=== PATIENT | male | born 1970 | race Caucasian/White ===

== ENCOUNTER 2020-09-30 15:09 | Emergency (ER) | payer BC, OTHER ==
[~2020-09-30] VITALS: Ht 188 cm; Wt 114.0 kg
[2020-09-30 15:17] VITALS: BP 168/100
--- NOTE | 2020-09-30 15:45 | NUR ---
PT BROUGHT BACK TO ROOM FROM TRIAGE. PT STATED THAT HE WAS SENT FROM URGENT CARE FOR "POSSIBLE ENDOCARDITIS." PT STATED THAT A COUPLE WEEKS AGO, HE HAD DENTAL WORK DONE AND DEVELOPED AN ABSCESS. PT COMPLETED THREE COURSES OF ANTIBIOTICS. STARTING 2 DAYS AGO, PT STARTED TO DEVELOP PAIN/TIGHTNESS UNDER HIS LEFT ARMPIT/RIBCAGE. TODAY, THE PAIN HAS SPREAD ACROSS HIS WHOLE LEFT CHEST. PT STATED THAT PAIN/TIGHTNESS INCREASES WITH ANY MOVEMENT AND HE FEELS LIKE HE IS UNABLE TO TAKE A DEEP BREATH. PT DENIES ANY FEVER, N/V OR RECENT INJURY. PT STATED THAT HE HAS HAD SOME DIARRHEA, BUT THINKS IT IS RELATED TO HIS ABX.
[2020-09-30 16:20] LABS: BASOPHILS % (AUTO) 1 % (0-1); EOSINOPHILS % (AUTO) 2 % (1-7); LYMPHOCYTES % (AUTO) 30 % (22-44); MEAN CORPUSCULAR HEMOGLOBIN 31.8 pg (27.5-34.5); MEAN CORPUSCULAR HGB CONC 33.9 g/dL (33.2-36.2); MEAN PLATELET VOLUME 8.1 fL (7.4-10.4); MONOCYTES % (AUTO) 9 % (2-9); NEUTROPHILS % (AUTO) 59 % (42-75); PLATELET COUNT 181 x10^3/uL (130-400); RED BLOOD COUNT 4.69 x10^6/uL (4.38-5.82); RED CELL DISTRIBUTION WIDTH 14.4 % (9.4-14.8)
[2020-09-30 16:22] LABS: MD NO
--- NOTE | 2020-09-30 16:28 | NUR ---
Cardio paged for stat echo order approval.
[2020-09-30 16:30] LABS: ALANINE AMINOTRANSFERASE 53 U/L (12-78); ALBUMIN 3.7 g/dL (3.4-5.0); ANION GAP 7 mmol/L (5-15); CALCIUM 8.1 mg/dL (8.5-10.1); CHLORIDE 110 mmol/L (98-107); CREATININE 1.14 mg/dL (0.7-1.3)
[2020-09-30 16:34] LABS: ALKALINE PHOSPHATASE 34 U/L (45-117); BILIRUBIN,TOTAL 0.2 mg/dL (0.2-1.0); TOTAL PROTEIN 6.9 g/dL (6.4-8.2); TROPONIN I < 0.015 ng/mL (0.000-0.045)
--- NOTE | 2020-09-30 17:34 | NUR ---
DISCHARGE INSTRUCTIONS REVIEWED WITH PT. ALL QUESTIONS ANSWERED AT THIS TIME.
== END 2020-09-30 17:38 | disposition home or self-care (01) ==
LOC: ED 17:25
DX: R07.89 Other chest pain (principal); R07.1 Chest pain on breathing
CPT/HCPCS: 36415; 71045; 80053; 84484; 85025; 87040; 93005; 99285